=== PATIENT | male | born 1980 | race Caucasian/White ===

== ENCOUNTER 2023-03-19 09:27 | Emergency (ER) | payer SELFPAY ==
[2023-03-19 10:44] LABS: Absolute Lymphocytes (CBC) 1.5 K/uL (0.7-4.9); Hematocrit 45.4 % (39.6-49.0); Lymphocytes % 14.5 % (15.3-44.8); MCV 87.1 fL (80-100); MPV 8.4 fL (7.6-11.3); RBC Red Blood Cell Count 5.21 M/uL (4.33-5.43)
[2023-03-19 10:58] LABS: Potassium 4.3 mEq/L (3.5-5.1)
[2023-03-19] MEDS ORDERED: LIDOCAINE 1% 20 ML MDV ONE (11:00)
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
[2023-03-19 12:33] VITALS: TEMP 98.5; O2SAT 98
[2023-03-19 12:36] VITALS: BP 121/73
== END 2023-03-19 12:07 | disposition home or self-care (01) ==
LOC: ER 09:27
PROC: 0H9DXZZ Drainage of Right Lower Arm Skin, External Approach (ICD-10-PCS; principal; 2023-03-19)
DX: L02.413 Cutaneous abscess of right upper limb (principal); L02.214 Cutaneous abscess of groin
CPT/HCPCS: 36415; 80048; 83605; 85025; 87040; 87070; 87077; 87186; 87205; J2001